=== PATIENT | female | born 1960 | race Two or more races ===

== ENCOUNTER → 2017-06-05 | Outpatient (CLI) | payer BC ==
[2017-06-05 13:57] LABS: Basophils # (auto) 0 uL; Basophils % (auto) 0.4 % (0.0-2.0); Eosinophils # (auto) 0.1 uL; Eosinophils % (auto) 2.1 % (0.0-7.0); Hematocrit 41.1 % (36.0-46.0); Lymphocytes # (auto) 2.7 uL; Lymphocytes % (auto) 39.9 % (10.0-50.0); Mean Corpuscular Hemoglobin 31.5 pg (28.0-32.0); Mean Corpuscular Hgb Conc. 34.1 g/dL (32.0-36.0); Mean Corpuscular Volume 92.3 fL (80.0-100.0); Monocytes # (auto) 0.3 uL; Neutrophils # (auto) 3.6 uL; Neutrophils % (auto) 53.6 % (37.0-80.0); Nucleated Red Blood Cells % 0.1 %; Platelet Count (auto) 348 10^3/uL (140-450); Red Blood Cells 4.46 10^6/uL (4.0-5.20); Red Cell Distribution Width 14.1 % (11.8-14.3); White Blood Cell 6.7 10^3/uL (4.4-10.8)
[2017-06-05 14:30] LABS: Urine Bacteria NONE SEEN /hpf (None Seen); Urine Blood 2+ /uL (Negative); Urine Mucus FEW (None Seen); Urine Specific Gravity 1.022 (1.001-1.035); Urine WBC 2 /hpf (0 - 5)
[2017-06-05 15:08] LABS: Albumin 4.2 g/dL (3.4-5.0); Bilirubin, Total 0.3 mg/dL (0.2-1.0); Calcium 9.5 mg/dL (8.5-10.1); Potassium 3.8 mmol/L (3.5-5.1); Total Protein 8.1 g/dL (6.4-8.2)
== END | disposition home or self-care (01) ==
LOC: LAB 13:22
PROVIDERS: ATTEND Internal Medicine
DX: E55.9 Vitamin D deficiency, unspecified (principal); K76.0 Fatty (change of) liver, not elsewhere classified; R20.2 Paresthesia of skin
CPT/HCPCS: 36415; 80053; 80061; 81001; 82785; 84439; 84443; 85025; 85652

== ENCOUNTER 2018-01-15 08:18 | Day surgery (SDC) | payer BC ==
[2018-01-11 13:11] LABS: Basophils # (auto) 0 uL; Basophils % (auto) 0.5 % (0.0-2.0); Eosinophils # (auto) 0.1 uL; Eosinophils % (auto) 2.1 % (0.0-7.0); Hematocrit 42.7 % (36.0-46.0); Hemoglobin 14.1 g/dL (12.2-16.2); Lymphocytes # (auto) 2.5 uL; Lymphocytes % (auto) 41.6 % (10.0-50.0); Mean Corpuscular Hemoglobin 31.6 pg (28.0-32.0); Mean Corpuscular Hgb Conc. 33.1 g/dL (32.0-36.0); Mean Corpuscular Volume 95.4 fL (80.0-100.0); Monocytes # (auto) 0.3 uL; Monocytes % (auto) 5.7 % (0.0-12.0); Neutrophils % (auto) 50.1 % (37.0-80.0); Platelet Count (auto) 358 10^3/uL (140-450); Red Blood Cells 4.48 10^6/uL (4.0-5.20); Red Cell Distribution Width 14.2 % (11.8-14.3)
[2018-01-11 13:26] LABS: INR 0.97 (0.9-1.15); Partial Thromboplastin Time 36.4 sec (23.78-33.04); Prothrombin Time 10.4 sec (9.27-12.13)
[~2018-01-15] VITALS: Ht 154.9 cm; Wt 90.3 kg
[~2018-01-15 08:18] MED LIST: CHOL20009 PO; OMEG100078 PO
[2018-01-15] MEDS ORDERED: SODIUM CHLORIDE LOCK 10 ML ONE (08:23)
[2018-01-15] MEDS ORDERED: diphenhdrAMINE HCL 50 MG/1 ML VL ONE (08:24)
[2018-01-15] MEDS: MIDAZOLAM HCL 5 MG/ML-1ML VIAL ONE ×3 (09:04→09:14)
[2018-01-15] MEDS: fentaNYL CITRATE 100 MCG/2 ML VL ONE ×3 (09:04→09:14)
[2018-01-15 10:00] VITALS: BP 109/64
== END 2018-01-15 10:15 | disposition home or self-care (01) ==
LOC: SUR 08:18
PROVIDERS: ATTEND Internal Medicine Gastroenterology
DX: Z12.11 Encounter for screening for malignant neoplasm of colon (principal); K64.8 Other hemorrhoids; E66.9 Obesity, unspecified; D21.9 Benign neoplasm of connective and other soft tissue, unspecified; K21.9 Gastro-esophageal reflux disease without esophagitis; Z88.0 Allergy status to penicillin; Z68.37 Body mass index [BMI] 37.0-37.9, adult
CPT/HCPCS: 36415; 45378; 85025; 85610; 85730; J1200; J2250; J3010; J7030; 99152; 99153

== ENCOUNTER → 2018-05-20 | Outpatient (CLI) | payer BC ==
[2018-05-20 13:08] LABS: Basophils # (auto) 0 uL; Basophils % (auto) 0.2 % (0.0-2.0); Eosinophils # (auto) 0.1 uL; Eosinophils % (auto) 1.1 % (0.0-7.0); Hematocrit 41.1 % (36.0-46.0); Hemoglobin 13.8 g/dL (12.2-16.2); Lymphocytes # (auto) 2.3 uL; Lymphocytes % (auto) 38.7 % (10.0-50.0); Mean Corpuscular Hemoglobin 31.2 pg (28.0-32.0); Mean Corpuscular Hgb Conc. 33.5 g/dL (32.0-36.0); Monocytes # (auto) 0.2 uL; Monocytes % (auto) 3.9 % (0.0-12.0); Neutrophils # (auto) 3.3 uL; Neutrophils % (auto) 56.1 % (37.0-80.0); Platelet Count (auto) 353 10^3/uL (140-450); Red Blood Cells 4.42 10^6/uL (4.0-5.20); Red Cell Distribution Width 13.5 % (11.8-14.3); White Blood Cell 5.9 10^3/uL (4.4-10.8)
[2018-05-20 13:36] LABS: Potassium 3.7 mmol/L (3.5-5.1)
[2018-05-20 13:48] LABS: Albumin 3.9 g/dL (3.4-5.0); Bilirubin, Total 0.3 mg/dL (0.2-1.0); Calcium 9.5 mg/dL (8.5-10.1); Total Protein 7.9 g/dL (6.4-8.2)
== END | disposition home or self-care (01) ==
LOC: LAB 12:18
PROVIDERS: ATTEND Internal Medicine
DX: Z00.01 Encounter for general adult medical examination with abnormal findings (principal); E55.9 Vitamin D deficiency, unspecified; I70.0 Atherosclerosis of aorta; K64.9 Unspecified hemorrhoids
CPT/HCPCS: 36415; 80053; 80061; 82043; 82306; 84439; 84443; 85025

== ENCOUNTER 2018-10-23 05:41 | Emergency (ER) | payer BC ==
[~2018-10-23] VITALS: Ht 154.9 cm; Wt 86.2 kg
[2018-10-23 06:44] LABS: Basophils # (auto) 0 uL; Basophils % (auto) 0.6 % (0.0-2.0); Eosinophils # (auto) 0.1 uL; Eosinophils % (auto) 1.4 % (0.0-7.0); Hematocrit 42.8 % (36.0-46.0); Hemoglobin 14.5 g/dL (12.2-16.2); Lymphocytes # (auto) 2.1 uL; Lymphocytes % (auto) 40.2 % (10.0-50.0); Mean Corpuscular Hemoglobin 31.5 pg (28.0-32.0); Mean Corpuscular Hgb Conc. 33.8 g/dL (32.0-36.0); Mean Corpuscular Volume 93.1 fL (80.0-100.0); Monocytes # (auto) 0.3 uL; Monocytes % (auto) 5.6 % (0.0-12.0); Neutrophils # (auto) 2.7 uL; Neutrophils % (auto) 52.2 % (37.0-80.0); Nucleated Red Blood Cells % 0.1 %; Platelet Count (auto) 346 10^3/uL (140-450); Red Cell Distribution Width 13.9 % (11.8-14.3); White Blood Cell 5.3 10^3/uL (4.4-10.8)
[2018-10-23 06:57] LABS: Albumin 3.9 g/dL (3.4-5.0); Anion Gap 4 (5-15); Blood Urea Nitrogen 21 mg/dL (7-18); Calcium 9.6 mg/dL (8.5-10.1); Carbon Dioxide 25 mmol/L (21-32); Chloride 111 mmol/L (98-107); Glucose 97 mg/dL (74-106); Magnesium 2.4 mg/dL (1.6-2.6); Potassium 4.4 mmol/L (3.5-5.1); Sodium 140 mmol/L (136-145)
[2018-10-23 07:02] LABS: Alanine Aminotransferase 29 U/L (13-56); Alkaline Phosphatase 85 U/L (45-117); Aspartate Aminotransferase 12 U/L (15-37); BUN/Creatinine Ratio 25.9; Bilirubin, Total 0.2 mg/dL (0.2-1.0); GFR African American 93 mL/min; GFR Non-African American 77 mL/min
[2018-10-23 07:59] LABS: Urine Bacteria NONE SEEN /hpf (None Seen); Urine Blood Negative /uL (Negative); Urine Specific Gravity 1.022 (1.001-1.035); Urine WBC 1 /hpf (0 - 5)
[2018-10-23 09:05] VITALS: BP 142/78
== END 2018-10-23 09:11 | disposition home or self-care (01) ==
LOC: ER 05:41
DX: R07.89 Other chest pain (principal); Z90.49 Acquired absence of other specified parts of digestive tract; Z88.0 Allergy status to penicillin
CPT/HCPCS: 36415; 71045; 80053; 81001; 83735; 84484; 85025; 93005

== ENCOUNTER → 2019-05-31 | Outpatient (CLI) | payer BC ==
[2019-05-31 10:46] LABS: Urine WBC None Seen /hpf (0 - 5)
[2019-05-31 10:56] LABS: Urine Bacteria NONE SEEN /hpf (None Seen); Urine Blood Negative /uL (Negative); Urine Specific Gravity 1.025 (1.001-1.035)
[2019-05-31 11:11] LABS: Basophils # (auto) 0 uL; Basophils % (auto) 0.5 % (0.0-2.0); Eosinophils # (auto) 0.1 uL; Eosinophils % (auto) 2.4 % (0.0-7.0); Hematocrit 40.9 % (36.0-46.0); Hemoglobin 13.5 g/dL (12.2-16.2); Lymphocytes % (auto) 40.7 % (10.0-50.0); Mean Corpuscular Hemoglobin 30.4 pg (28.0-32.0); Mean Corpuscular Hgb Conc. 33.1 g/dL (32.0-36.0); Monocytes # (auto) 0.2 uL; Monocytes % (auto) 3.8 % (0.0-12.0); Neutrophils # (auto) 2.5 uL; Neutrophils % (auto) 52.6 % (37.0-80.0); Nucleated Red Blood Cells % 0.1 %; Platelet Count (auto) 394 10^3/uL (140-450); Red Blood Cells 4.45 10^6/uL (4.0-5.20); Red Cell Distribution Width 14.8 % (11.8-14.3); White Blood Cell 4.8 10^3/uL (4.4-10.8)
[2019-05-31 12:24] LABS: Potassium 4.4 mmol/L (3.5-5.1)
[2019-05-31 12:41] LABS: Albumin 3.9 g/dL (3.4-5.0); BUN/Creatinine Ratio 17.6; Bilirubin, Total 0.2 mg/dL (0.2-1.0); Calcium 9.7 mg/dL (8.5-10.1); Total Protein 7.9 g/dL (6.4-8.2)
== END | disposition home or self-care (01) ==
LOC: LAB 10:32
PROVIDERS: ATTEND Internal Medicine
DX: E55.9 Vitamin D deficiency, unspecified (principal); K21.9 Gastro-esophageal reflux disease without esophagitis; N83.209 Unspecified ovarian cyst, unspecified side
CPT/HCPCS: 36415; 80053; 80061; 81001; 82306; 84439; 84443; 85025; 85652; 86304

== ENCOUNTER → 2020-01-24 | Outpatient (CLI) | payer BC ==
[2020-01-24 16:23] LABS: Basophils # (auto) 0 10 ^3/uL (0-0.2); Basophils % (auto) 0.4 % (0.0-2.0); Eosinophils # (auto) 0.1 10 ^3/uL (0-0.8); Eosinophils % (auto) 1.6 % (0.0-7.0); Hematocrit 39.8 % (36.0-46.0); Hemoglobin 13.4 g/dL (12.2-16.2); Lymphocytes % (auto) 36.9 % (10.0-50.0); Mean Corpuscular Hemoglobin 30.3 pg (28.0-32.0); Mean Corpuscular Hgb Conc. 33.6 g/dL (32.0-36.0); Mean Corpuscular Volume 90.2 fL (80.0-100.0); Monocytes # (auto) 0.2 10 ^3/uL (0-1.3); Monocytes % (auto) 4.1 % (0.0-12.0); Neutrophils # (auto) 3.2 10 ^3/uL (1.6-8.6); Platelet Count (auto) 355 10^3/uL (140-450); Red Blood Cells 4.41 10^6/uL (4.0-5.20); Red Cell Distribution Width 16.3 % (11.8-14.3); White Blood Cell 5.6 10^3/uL (4.4-10.8)
[2020-01-24 16:44] LABS: Albumin 4.1 g/dL (3.4-5.0); BUN/Creatinine Ratio 18.2; Calcium 9.2 mg/dL (8.5-10.1); Potassium 3.8 mmol/L (3.5-5.1)
[2020-01-24 16:46] LABS: Urine Bacteria NONE SEEN /hpf (None Seen); Urine Blood Negative /uL (Negative); Urine Hyaline Cast FEW /lpf (0 - 2); Urine Mucus FEW (None Seen); Urine Specific Gravity 1.021 (1.001-1.035); Urine WBC 13 /hpf (0 - 5)
[2020-01-24 16:48] LABS: Bilirubin, Total 0.4 mg/dL (0.2-1.0); Total Protein 8.1 g/dL (6.4-8.2)
== END | disposition home or self-care (01) ==
LOC: LAB 15:59
PROVIDERS: ATTEND Internal Medicine
DX: R15.9 Full incontinence of feces (principal)
CPT/HCPCS: 36415; 80053; 81001; 85025

== ENCOUNTER → 2020-03-10 | Outpatient (CLI) | payer BC ==
[2020-03-10 11:40] LABS: Urine WBC None Seen /hpf (0 - 5)
[2020-03-10 12:24] LABS: Urine Bacteria NONE SEEN /hpf (None Seen); Urine Blood Negative /uL (Negative); Urine Mucus FEW (None Seen); Urine Specific Gravity 1.022 (1.001-1.035)
== END | disposition home or self-care (01) ==
LOC: LAB 11:37
PROVIDERS: ATTEND Internal Medicine Gastroenterology
DX: K64.9 Unspecified hemorrhoids (principal); R19.4 Change in bowel habit
CPT/HCPCS: 81001; 87086

== ENCOUNTER → 2020-06-08 | Outpatient (CLI) | payer BC ==
[2020-06-08 11:00] LABS: Basophils # (auto) 0 10 ^3/uL (0-0.2); Basophils % (auto) 0.4 % (0.0-2.0); Eosinophils # (auto) 0.1 10 ^3/uL (0-0.8); Eosinophils % (auto) 1.8 % (0.0-7.0); Hematocrit 38.1 % (36.0-46.0); Lymphocytes # (auto) 2.1 10 ^3/uL (0.4-5.4); Lymphocytes % (auto) 36.4 % (10.0-50.0); Mean Corpuscular Hemoglobin 31.5 pg (28.0-32.0); Mean Corpuscular Volume 92.7 fL (80.0-100.0); Monocytes # (auto) 0.2 10 ^3/uL (0-1.3); Neutrophils # (auto) 3.3 10 ^3/uL (1.6-8.6); Neutrophils % (auto) 57.4 % (37.0-80.0); Nucleated Red Blood Cells % 0.1 %; Platelet Count (auto) 415 10^3/uL (140-450); Red Blood Cells 4.11 10^6/uL (4.0-5.20); Red Cell Distribution Width 14.4 % (11.8-14.3); Urine Bacteria NONE SEEN /hpf (None Seen); Urine Blood Negative /uL (Negative); Urine Mucus FEW (None Seen); Urine Specific Gravity 1.021 (1.001-1.035); Urine WBC 4 /hpf (0 - 5); White Blood Cell 5.7 10^3/uL (4.4-10.8)
[2020-06-08 11:12] LABS: INR 0.97 (0.9-1.15)
[2020-06-08 11:31] LABS: Calcium 9.5 mg/dL (8.5-10.1); Potassium 3.9 mmol/L (3.5-5.1)
[2020-06-08 11:37] LABS: BUN/Creatinine Ratio 17.4; Bilirubin, Total 0.3 mg/dL (0.2-1.0)
== END | disposition home or self-care (01) ==
LOC: LAB 10:36
PROVIDERS: ATTEND Internal Medicine
DX: Z00.00 Encounter for general adult medical examination without abnormal findings (principal); K76.0 Fatty (change of) liver, not elsewhere classified; E55.9 Vitamin D deficiency, unspecified
CPT/HCPCS: 36415; 80053; 80061; 81001; 82306; 84439; 84443; 85025; 85610; 85652

== ENCOUNTER → 2021-09-10 | Outpatient (CLI) | payer BC | END | disposition home or self-care (01) | LOC: LAB 11:15 | PROVIDERS: ATTEND Internal Medicine Gastroenterology | DX: K21.9 Gastro-esophageal reflux disease without esophagitis (principal); D50.0 Iron deficiency anemia secondary to blood loss (chronic); R19.7 Diarrhea, unspecified | CPT/HCPCS: 36415; 82565; 84520 ==

== ENCOUNTER → 2021-10-14 | Outpatient (CLI) | payer BC ==
[~2021-10-14] MED LIST changes: +MESA1.2T PO
[2021-10-14 10:16] LABS: Basophils # (auto) 0 10 ^3/uL (0-0.2); Basophils % (auto) 0.8 % (0.0-2.0); Eosinophils # (auto) 0.1 10 ^3/uL (0-0.8); Eosinophils % (auto) 2.5 % (0.0-7.0); Hematocrit 34.3 % (36.0-46.0); Hemoglobin 11.4 g/dL (12.2-16.2); Lymphocytes # (auto) 1.7 10 ^3/uL (0.4-5.4); Lymphocytes % (auto) 36.3 % (10.0-50.0); Mean Corpuscular Hemoglobin 27.1 pg (28.0-32.0); Mean Corpuscular Hgb Conc. 33.2 g/dL (32.0-36.0); Mean Corpuscular Volume 81.7 fL (80.0-100.0); Monocytes # (auto) 0.2 10 ^3/uL (0-1.3); Neutrophils # (auto) 2.7 10 ^3/uL (1.6-8.6); Neutrophils % (auto) 56.4 % (37.0-80.0); Nucleated Red Blood Cells % 0.1 %; Red Blood Cells 4.19 10^6/uL (4.0-5.20); Red Cell Distribution Width 17.2 % (11.8-14.3); White Blood Cell 4.8 10^3/uL (4.4-10.8)
[2021-10-14 10:34] LABS: Potassium 3.6 mmol/L (3.5-5.1)
[2021-10-14 10:38] LABS: Albumin 3.7 g/dL (3.4-5.0); BUN/Creatinine Ratio 8.2; Bilirubin, Total 0.3 mg/dL (0.2-1.0); Calcium 9.5 mg/dL (8.5-10.1); Total Protein 7.5 g/dL (6.4-8.2)
== END | disposition home or self-care (01) ==
LOC: LAB 08:56
PROVIDERS: ATTEND Internal Medicine Gastroenterology
DX: K51.90 Ulcerative colitis, unspecified, without complications (principal); R93.3 Abnormal findings on diagnostic imaging of other parts of digestive tract
CPT/HCPCS: 36415; 80053; 82150; 83690; 85025; 86301

== ENCOUNTER → 2021-10-16 | Day surgery (SDC) | payer BC ==
[2021-10-14 10:51] LABS: Partial Thromboplastin Time 30.9 sec (23.6-33.0)
[2021-10-14 10:58] LABS: Albumin 3.7 g/dL (3.4-5.0); Potassium 3.6 mmol/L (3.5-5.1)
[2021-10-14 11:03] LABS: BUN/Creatinine Ratio 9.1; Bilirubin, Total 0.3 mg/dL (0.2-1.0); Calcium 9.5 mg/dL (8.5-10.1); Total Protein 7.5 g/dL (6.4-8.2)
[2021-10-15 07:26] LABS: Basophils # (auto) 0 10 ^3/uL (0-0.2); Eosinophils # (auto) 0.1 10 ^3/uL (0-0.8); Mean Corpuscular Volume 83.8 fL (80.0-100.0); Monocytes # (auto) 0.2 10 ^3/uL (0-1.3); Neutrophils % (auto) 57.9 % (37.0-80.0)
[2021-10-15 07:27] LABS: Basophils % (auto) 0.9 % (0.0-2.0); Eosinophils % (auto) 2.7 % (0.0-7.0); Hematocrit 35.3 % (36.0-46.0); Hemoglobin 11.2 g/dL (12.2-16.2); Lymphocytes # (auto) 1.7 10 ^3/uL (0.4-5.4); Lymphocytes % (auto) 34.9 % (10.0-50.0); Mean Corpuscular Hemoglobin 26.6 pg (28.0-32.0); Mean Corpuscular Hgb Conc. 31.8 g/dL (32.0-36.0); Monocytes % (auto) 3.6 % (0.0-12.0); Neutrophils # (auto) 2.8 10 ^3/uL (1.6-8.6); Nucleated Red Blood Cells % 0.3 %; Red Blood Cells 4.21 10^6/uL (4.0-5.20); Red Cell Distribution Width 17.3 % (11.8-14.3); White Blood Cell 4.8 10^3/uL (4.4-10.8)
[~2021-10-16] VITALS: Ht 154.9 cm; Wt 90.7 kg
[~2021-10-16] MED LIST changes: +LIDOCAINE VISCOUS 2% 15ML UD ONE; +MIDAZOLAM HCL 2MG/2ML 2ml VIAL (1mg/ml) ONE; +MIDAZOLAM HCL 5 MG/ML-1ML VIAL ONE; +ONDANSETRON HCL 4 MG/2 ML VIAL ONE; +PROPOFOL 100 ML IV ONE; +diphenhdrAMINE HCL 50 MG/1 ML VL ONE; +fentaNYL CITRATE 100 MCG/2 ML VL ONE
[2021-10-16 16:55] VITALS: BP 133/84
== END | disposition home or self-care (01) ==
LOC: GI 12:37
PROVIDERS: ATTEND Internal Medicine Gastroenterology
DX: K52.9 Noninfective gastroenteritis and colitis, unspecified (principal); D12.3 Benign neoplasm of transverse colon; K64.8 Other hemorrhoids; K21.00 Gastro-esophageal reflux disease with esophagitis, without bleeding; K44.9 Diaphragmatic hernia without obstruction or gangrene; K29.50 Unspecified chronic gastritis without bleeding; K29.80 Duodenitis without bleeding; K31.89 Other diseases of stomach and duodenum; D72.820 Lymphocytosis (symptomatic); Z82.61 Family history of arthritis; Z98.890 Other specified postprocedural states; Z79.899 Other long term (current) drug therapy; Z88.0 Allergy status to penicillin; Z20.822 Contact with and (suspected) exposure to COVID-19
CPT/HCPCS: 36415; 43239; 45385; 80053; 85025; 85610; 85730; 88305; 88342; J1200; J2250; J2405; J2704; J3010; J7030; U0003; 99152

== ENCOUNTER → 2022-07-30 | Outpatient (CLI) | payer BC ==
[~2022-07-30] MED LIST changes: -LIDOCAINE VISCOUS 2% 15ML UD ONE; -MIDAZOLAM HCL 2MG/2ML 2ml VIAL (1mg/ml) ONE; -MIDAZOLAM HCL 5 MG/ML-1ML VIAL ONE; -ONDANSETRON HCL 4 MG/2 ML VIAL ONE; -PROPOFOL 100 ML IV ONE; -diphenhdrAMINE HCL 50 MG/1 ML VL ONE; -fentaNYL CITRATE 100 MCG/2 ML VL ONE
[2022-07-30 09:17] LABS: Basophils # (auto) 0 10 ^3/uL (0-0.2); Basophils % (auto) 0.4 % (0.0-2.0); Eosinophils # (auto) 0.1 10 ^3/uL (0-0.8); Hematocrit 36.9 % (36.0-46.0); Lymphocytes # (auto) 2.1 10 ^3/uL (0.4-5.4); Lymphocytes % (auto) 40.4 % (10.0-50.0); Mean Corpuscular Hemoglobin 27.3 pg (28.0-32.0); Mean Corpuscular Hgb Conc. 32.4 g/dL (32.0-36.0); Mean Corpuscular Volume 84.1 fL (80.0-100.0); Monocytes # (auto) 0.2 10 ^3/uL (0-1.3); Neutrophils # (auto) 2.8 10 ^3/uL (1.6-8.6); Neutrophils % (auto) 53.2 % (37.0-80.0); Nucleated Red Blood Cells % 0.2 %; Red Blood Cells 4.39 10^6/uL (4.0-5.20); Red Cell Distribution Width 17.6 % (11.8-14.3); White Blood Cell 5.2 10^3/uL (4.4-10.8)
[2022-07-30 09:41] LABS: Urine Bacteria NONE SEEN /hpf (None Seen); Urine Blood Negative /uL (Negative); Urine Specific Gravity 1.014 (1.001-1.035); Urine WBC 4 /hpf (0 - 5)
[2022-07-30 10:12] LABS: Albumin 3.7 g/dL (3.4-5.0); Calcium 9.5 mg/dL (8.5-10.1)
[2022-07-30 10:18] LABS: BUN/Creatinine Ratio 9.9; Bilirubin, Total 0.3 mg/dL (0.2-1.0); Total Protein 7.2 g/dL (6.4-8.2)
== END | disposition home or self-care (01) ==
LOC: LAB 09:02
PROVIDERS: ATTEND Internal Medicine
DX: K51.90 Ulcerative colitis, unspecified, without complications (principal)
CPT/HCPCS: 36415; 80053; 80061; 81001; 84439; 84443; 85025; 85652

== ENCOUNTER → 2023-02-18 | Outpatient (CLI) | payer BC ==
[~2023-02-18] MED LIST changes: +OMEG-20 PO; -OMEG100078 PO
[2023-02-18 11:32] LABS: Basophils # (auto) 0 10 ^3/uL (0-0.2); Basophils % (auto) 0.5 % (0.0-2.0); Eosinophils # (auto) 0.1 10 ^3/uL (0-0.8); Eosinophils % (auto) 1.9 % (0.0-7.0); Hematocrit 40.4 % (36.0-46.0); Hemoglobin 13.2 g/dL (12.2-16.2); Lymphocytes # (auto) 1.8 10 ^3/uL (0.4-5.4); Lymphocytes % (auto) 34.2 % (10.0-50.0); Mean Corpuscular Hemoglobin 29.5 pg (28.0-32.0); Mean Corpuscular Hgb Conc. 32.7 g/dL (32.0-36.0); Mean Corpuscular Volume 90.1 fL (80.0-100.0); Monocytes # (auto) 0.2 10 ^3/uL (0-1.3); Monocytes % (auto) 4.2 % (0.0-12.0); Neutrophils # (auto) 3.2 10 ^3/uL (1.6-8.6); Neutrophils % (auto) 59.2 % (37.0-80.0); Nucleated Red Blood Cells % 0.1 %; Red Blood Cells 4.49 10^6/uL (4.0-5.20); Red Cell Distribution Width 16.7 % (11.8-14.3); White Blood Cell 5.3 10^3/uL (4.4-10.8)
[2023-02-18 11:47] LABS: INR 1.01 (0.9-1.15)
[2023-02-18 12:37] LABS: Albumin 3.7 g/dL (3.4-5.0); Calcium 9.7 mg/dL (8.5-10.1)
[2023-02-18 12:45] LABS: Bilirubin, Total 0.3 mg/dL (0.2-1.0); Total Protein 7.8 g/dL (6.4-8.2)
[2023-02-18 13:06] LABS: BUN/Creatinine Ratio 13.6 (10.0-20.0)
== END | disposition home or self-care (01) ==
LOC: LAB 11:06
PROVIDERS: ATTEND Internal Medicine Gastroenterology
DX: K76.0 Fatty (change of) liver, not elsewhere classified (principal); D64.9 Anemia, unspecified; K21.9 Gastro-esophageal reflux disease without esophagitis; K51.90 Ulcerative colitis, unspecified, without complications
CPT/HCPCS: 36415; 80053; 80061; 82784; 83036; 83516; 85025; 85610; 86255; 86256; 86671

== ENCOUNTER → 2023-07-15 | Outpatient (CLI) | payer BC ==
[2023-07-15 11:54] LABS: Erythrocyte Sedimentation Rate 13 mm/hr (0-20)
[2023-07-15 11:57] LABS: Alanine Aminotransferase 29 U/L (7-40); Albumin 4.7 g/dL (3.2-4.8); Alkaline Phosphatase 106 U/L (46-116); Anion Gap 4 (5-15); Aspartate Aminotransferase 22 U/L (13-40); BUN/Creatinine Ratio 14.3 (10.0-20.0); Blood Urea Nitrogen 11 mg/dL (9-23); Calcium 9.6 mg/dL (8.7-10.4); Carbon Dioxide 27 mmol/L (20-30); Chloride 108 mmol/L (98-107); Potassium 4.2 mmol/L (3.5-5.1); Sodium 139 mmol/L (136-145)
[2023-07-15 11:58] LABS: Bilirubin, Total 0.5 mg/dL (0.2-1.0); Total Protein 7.6 g/dL (5.7-8.2)
[2023-07-15 12:05] LABS: Glucose 90 mg/dL (74-106)
[2023-07-15 12:13] LABS: Basophils # (auto) 0 10 ^3/uL (0-0.2); Basophils % (auto) 0.2 % (0.0-2.0); Eosinophils # (auto) 0.1 10 ^3/uL (0-0.8); Eosinophils % (auto) 0.8 % (0.0-7.0); Hematocrit 40.7 % (36.0-46.0); Hemoglobin 13.4 g/dL (12.2-16.2); Lymphocytes % (auto) 25.6 % (10.0-50.0); Mean Corpuscular Hemoglobin 30.7 pg (28.0-32.0); Mean Corpuscular Volume 92.9 fL (80.0-100.0); Monocytes # (auto) 0.4 10 ^3/uL (0-1.3); Monocytes % (auto) 4.5 % (0.0-12.0); Neutrophils # (auto) 5.5 10 ^3/uL (1.6-8.6); Neutrophils % (auto) 68.9 % (37.0-80.0); Nucleated Red Blood Cells % 0.1 %; Red Blood Cells 4.39 10^6/uL (4.0-5.20); Red Cell Distribution Width 14.7 % (11.8-14.3)
== END | disposition home or self-care (01) ==
LOC: LAB 10:39
PROVIDERS: ATTEND Internal Medicine
DX: R31.9 Hematuria, unspecified (principal)
CPT/HCPCS: 36415; 80053; 85025; 85652; 87086

== ENCOUNTER → 2023-10-14 | Outpatient (CLI) | payer BC, OTHER | END | disposition home or self-care (01) | LOC: LAB 09:00 | PROVIDERS: ATTEND Obstetrics & Gynecology | DX: N85.00 Endometrial hyperplasia, unspecified (principal) ==

== ENCOUNTER 2024-03-04 09:51 | Day surgery (SDC) | payer OTHER ==
[2024-03-02 12:06] LABS: Basophils # (auto) 0 10 ^3/uL (0-0.2); Basophils % (auto) 0.3 % (0.0-2.0); Eosinophils # (auto) 0 10 ^3/uL (0-0.8); Eosinophils % (auto) 0.4 % (0.0-7.0); Hematocrit 40.7 % (36.0-46.0); Hemoglobin 13.6 g/dL (12.2-16.2); Lymphocytes # (auto) 1.8 10 ^3/uL (0.4-5.4); Lymphocytes % (auto) 25.1 % (10.0-50.0); Mean Corpuscular Hemoglobin 31.1 pg (28.0-32.0); Mean Corpuscular Hgb Conc. 33.4 g/dL (32.0-36.0); Mean Corpuscular Volume 93.2 fL (80.0-100.0); Monocytes # (auto) 0.4 10 ^3/uL (0-1.3); Monocytes % (auto) 4.9 % (0.0-12.0); Neutrophils % (auto) 69.3 % (37.0-80.0); Red Blood Cells 4.37 10^6/uL (4.0-5.20); Red Cell Distribution Width 14.4 % (11.8-14.3); White Blood Cell 7.2 10^3/uL (4.4-10.8)
[2024-03-02 12:28] LABS: INR 0.99 (0.9-1.15); Partial Thromboplastin Time 30.9 SEC (24.5-34.5); Prothrombin Time 10.5 sec (9.3-11.8)
[2024-03-02 12:46] LABS: Alanine Aminotransferase 21 U/L (7-40); Albumin 4.7 g/dL (3.2-4.8); Alkaline Phosphatase 102 U/L (46-116); Anion Gap 10 (5-15); Aspartate Aminotransferase 20 U/L (13-40); BUN/Creatinine Ratio 12.1 (10.0-20.0); Bilirubin, Total 0.5 mg/dL (0.2-1.0); Blood Urea Nitrogen 11 mg/dL (9-23); Calcium 10.6 mg/dL (8.7-10.4); Carbon Dioxide 24 mmol/L (20-30); Chloride 110 mmol/L (98-107); Glucose 101 mg/dL (74-106); Potassium 3.6 mmol/L (3.5-5.1); Sodium 144 mmol/L (136-145); Total Protein 7.4 g/dL (5.7-8.2)
[2024-03-03 15:31] LABS: Urine Blood Negative /uL (Negative); Urine Clarity Turbid (Clear); Urine Color Yellow (Yellow); Urine Mucus FEW (None Seen); Urine Protein, UAD TRACE (Negative); Urine Specific Gravity 1.031 (1.001-1.035); Urine Urobilinogen Normal (Negative); Urine WBC 3 /hpf (0 - 5); Urine pH 5.5 (5.0-9.0)
[~2024-03-04] VITALS: Ht 154.9 cm; Wt 90.7 kg
[~2024-03-04 09:51] MED LIST changes: +ASCO500T11 PO; +BUDE3CAP18 PO; +MAGN400T40 OR
[2024-03-04] MEDS ORDERED: PROPOFOL 10 MG/ML 20 ML IV ONE (10:15)
[2024-03-04] MEDS ORDERED: fentaNYL CITRATE 100 MCG/2 ML VL ONE (10:15)
[2024-03-04 11:39] VITALS: PULSE 67; RESP 15; O2SAT 94
[2024-03-04] MEDS ORDERED: HYDROmorphone HCL 2 MG/ML VL/or syr IV PRN (11:45)
[2024-03-04] MEDS ORDERED: ONDANSETRON HCL 4 MG/2 ML VIAL IV ONE (11:45)
[2024-03-04] MEDS ORDERED: MEPERIDINE HCL (25 MG/ML) 1ML VIAL IV PRN (11:45)
[2024-03-04 12:15] VITALS: BP 112/57; PULSE 56; RESP 17; O2SAT 98
== END 2024-03-04 12:30 | disposition home or self-care (01) ==
LOC: GI 09:51 → EEVIPCON 13:30
PROVIDERS: ATTEND Internal Medicine Gastroenterology
DX: K52.89 Other specified noninfective gastroenteritis and colitis (principal); K64.8 Other hemorrhoids; K21.9 Gastro-esophageal reflux disease without esophagitis; J45.909 Unspecified asthma, uncomplicated; E66.01 Morbid (severe) obesity due to excess calories; Z88.0 Allergy status to penicillin; Z86.2 Personal history of diseases of the blood and blood-forming organs and certain disorders involving the immune mechanism; Z68.37 Body mass index [BMI] 37.0-37.9, adult; Z98.890 Other specified postprocedural states; Z82.61 Family history of arthritis
CPT/HCPCS: 36415; 45380; 80053; 81001; 85025; 85610; 85730; 88305; J2704; J3010; J7030

== ENCOUNTER → 2024-12-22 | Outpatient (CLI) | payer OTHER ==
[2024-12-22 11:18] LABS: Basophils # (auto) 0 10 ^3/uL (0-0.2); Basophils % (auto) 0.3 % (0.0-2.0); Eosinophils # (auto) 0 10 ^3/uL (0-0.8); Eosinophils % (auto) 0.6 % (0.0-7.0); Hematocrit 40.3 % (36.0-46.0); Hemoglobin 13.4 g/dL (12.2-16.2); Lymphocytes % (auto) 32.2 % (10.0-50.0); Mean Corpuscular Hemoglobin 30.2 pg (28.0-32.0); Mean Corpuscular Hgb Conc. 33.4 g/dL (32.0-36.0); Mean Corpuscular Volume 90.4 fL (80.0-100.0); Monocytes # (auto) 0.2 10 ^3/uL (0-1.3); Monocytes % (auto) 4.1 % (0.0-12.0); Neutrophils # (auto) 3.9 10 ^3/uL (1.6-8.6); Neutrophils % (auto) 62.8 % (37.0-80.0); Nucleated Red Blood Cells % 0.1 %; Platelet Count (auto) 327 10^3/uL (140-450); Red Blood Cells 4.46 10^6/uL (4.0-5.20); Red Cell Distribution Width 16.3 % (11.8-14.3); White Blood Cell 6.1 10^3/uL (4.4-10.8)
[2024-12-22 11:39] LABS: Alanine Aminotransferase 16 U/L (7-40); Alkaline Phosphatase 80 U/L (46-116); Anion Gap 8 (5-15); BUN/Creatinine Ratio 13.3 (10.0-20.0); Blood Urea Nitrogen 11 mg/dL (9-23); Calcium 10.1 mg/dL (8.7-10.4); Carbon Dioxide 25 mmol/L (20-31); Glucose 86 mg/dL (74-106); Sodium 144 mmol/L (136-145); Total Protein 7.3 g/dL (5.7-8.2)
[2024-12-22 11:40] LABS: Albumin 4.6 g/dL (3.2-4.8); Bilirubin, Total 0.4 mg/dL (0.2-1.0)
[2024-12-22 11:43] LABS: Aspartate Aminotransferase 12 U/L (13-40); Chloride 111 mmol/L (98-107)
[2024-12-22 11:55] LABS: CRP High Sensitivity 0.15 mg/dL (<1.0)
[2024-12-22 12:11] LABS: Erythrocyte Sedimentation Rate 10 mm/hr (0-20)
[2024-12-23 17:07] LABS: Albumin 3.7 g/dL (2.9-4.4); Alpha-1-Globulin 0.3 g/dL (0.0-0.4); Alpha-2-Globulin 0.6 g/dL (0.4-1.0); Gamma Globulin 1.3 g/dL (0.4-1.8); Globulin Total 3.2 g/dL (2.2-3.9); Protein Total Serum 6.9 g/dL (6.0-8.5)
== END | disposition home or self-care (01) ==
LOC: LAB 10:41
PROVIDERS: ATTEND Internal Medicine
DX: E83.52 Hypercalcemia (principal); K52.9 Noninfective gastroenteritis and colitis, unspecified
CPT/HCPCS: 36415; 80053; 83615; 83970; 84155; 84165; 85025; 85652; 86141